=== PATIENT | male | born 1955 | race Caucasian/White ===

== ENCOUNTER 2018-06-23 14:35 | Emergency (ER) | payer SELFPAY ==
[~2018-06-23 14:35] MED LIST: Iopamidol 370 76% 100 ML VIAL ONE
[2018-06-23 15:26] LABS: #Basophils 0.1 thou/uL (0.0-0.2); #Lymphocytes 1.7 thou/uL (1.20-3.40); #Monocytes 0.7 thou/uL (0.11-0.59); #Neutrophils 3.1 thou/uL (1.40-6.50); %Basophils 1.8 % (0.0-1.0); %Eosinophils 0.4 % (0.0-10.0); %Lymphocytes 29.8 % (21.0-51.0); %Monocytes 11.8 % (0.0-10.0); %Neutrophils 56.2 % (42.0-75.0); Mean Corpuscular HGB CONC 31.8 g/dL (32.0-36.0); Mean Corpuscular Hemoglobin 26.7 pg (27.0-31.0); Mean Corpuscular Volume 83.9 fL (78.0-98.0); Mean Platelet Volume 7.5 fL (7.4-10.4); Platelet Count 324 thou/uL (130-400); RBC Distribution Width 11.6 % (11.5-14.5); Red Blood Cell (RBC) Count 5.98 mill/uL (4.70-6.10); White Blood Cell (WBC) Count 5.6 thou/uL (4.8-10.8)
[2018-06-23] MEDS ORDERED: Sodium Chloride 0.9% 1,000 ML ONE (15:27)
[2018-06-23] MEDS ORDERED: Ondansetron PF 4 MG/2 ML Vial ONE (15:27)
[2018-06-23 15:42] LABS: CKMB 1.2 ng/mL (0-6.6); Troponin I 0.012 ng/mL (< 0.028)
--- NOTE | 2018-06-23 15:48 | RAD ---
FRONTAL VIEW CHEST: Date: 06/23/18 No prior comparison. INDICATION: Nausea and vomiting. FINDINGS: There is a linear-oriented region of patchy density at the lateral right mid lung zone. Punctate dens ity of the lateral right lung base may be related to granulomatous calcification. Cardiac silhouette is accentuated by portable technique. Osseous structures are intact. IMPRESSION: Patchy density in lateral right mid lung, could relate to an area of atelectasis or a subtle area of developing infiltrate related to pneumonia. This may be further assess with follow-up 2 view chest. POS: [facility]
[2018-06-23 15:52] LABS: ALT (SGPT) 79 U/L (8-55); AST (SGOT) 44 U/L (5-34); Alkaline Phosphatase 79 U/L (40-150); Anion Gap 17 mmol/L (10-20); BUN (Urea Nitrogen) 17 mg/dL (8.4-25.7); Bilirubin, Total 0.5 mg/dL (0.2-1.2); CK (CPK) 88 U/L (30-200); Calc. Creatinine Clearance 0 mL/min (70-130); Calcium 9.4 mg/dL (7.8-10.44); Carbon Dioxide 22 mmol/L (23-31); Chloride 100 mmol/L (98-107); Estimated GFR-MDRD Greater than 90; Globulin 3.2 g/dL (2.4-3.5); Glucose 98 mg/dL (80-115); Lipase 31 U/L (8-78); Potassium 4.4 mmol/L (3.5-5.1); Protein, Total 7.2 g/dL (5.8-8.1); Sodium 135 mmol/L (136-145)
[2018-06-23 16:53] LABS: Bilirubin Negative (Negative); Blood, Urine Negative (Negative); Clarity Clear (Clear); Glucose, Urine (Dipstick) Negative (Negative); Leukocyte Negative (Negative); Nitrite Negative (Negative); Protein, Urine (Dipstick) Negative (Neg-Trace); Specific Gravity, Urine 1.015 (1.005-1.030); Urobilinogen 0.2 mg/dL (0.2-1.0)
--- NOTE | 2018-06-23 18:53 | RAD ---
TWO VIEWS CHEST: 06/23/18 HISTORY: Cough. PA and lateral views of the chest is obtained on 06/23/18. Two views chest demonstrates an area of slight volume loss with opacification seen in the inferior as pect of the right upper lobe. This is compatible with a small area of right upper lobe pneumonia. It is better visualized on the PA and lateral views of the chest rather than the AP portable chest radio graph obtained earlier. The left lung is well aerated. IMPRESSION: Areas of patchy pneumonia in the inferior aspect of the right upper lobe. Followup films to resoluti on recommended. POS: [facility]
[2018-06-23] MEDS ORDERED: Azithromycin 250 MG TAB ONE (19:15)
--- NOTE | 2018-06-23 19:45 | CT ---
CONTRAST ENHANCED CT IMAGES OF THE ABDOMEN AND PELVIS: 06/23/18 HISTORY: Vomiting. Contrast enhanced CT images of the abdomen and pelvis obtained after administration of IV and oral co ntrast. Images demonstrate areas of patchy density as well as numerous nodular densities in the lung bases. T his is concerning for possible lung metastatic lesions. Other possibilities could include extensive p revious inflammatory parenchymal processes. Right hilar calcified lymph node is seen. The liver and spleen are unremarkable. The pancreas and gallbladder are unremarkable. There is abnormal thickening of the proximal half of the duodenum with some surrounding duodenal thic kening and inflammatory change. This may represent a duodenal ulcer or inflammatory process. Correlat e with direct visualization. Adrenal glands are unremarkable. No evidence of renal parenchymal masses or lesions seen. No dilated loops of small bowel seen. The appendix definitively not visualized. The colon is unremark able without evidence of significant distension or masses. IMPRESSION: 1. Numerous lung parenchymal soft tissue nodules and ill-defined lesions. Metastatic disease can not be excluded. 2. Abnormal thickening of the proximal duodenum. This may represent an inflammatory process with in the duodenum. Correlate with direct visualization. POS: [facility]
== END 2018-06-23 19:35 | disposition home or self-care (01) ==
LOC: NAV ERS 14:35
DX: J18.9 Pneumonia, unspecified organism (principal); R11.2 Nausea with vomiting, unspecified; Z79.82 Long term (current) use of aspirin
CPT/HCPCS: 71045; 71046; 74177; 80053; 81003; 82553; 83690; 84484; 85025; 93005; 96361; 96374; J2405; J7050

== ENCOUNTER 2022-06-09 08:30 | Emergency (ER) | payer MEDICARE, SELFPAY ==
[2022-06-09] MEDS ORDERED: Iopamidol 370 76% 100 ML VIAL ONE (09:00)
[2022-06-09] MEDS ORDERED: Nitroglycerin 2% Ointment 1 INCH/1 GM Packet ONE (09:17)
[2022-06-09] MEDS ORDERED: Morphine 4 MG/ML VIAL ONE (09:18)
[2022-06-09] MEDS ORDERED: Aspirin Chewable 81 MG TAB ONE (09:18)
[2022-06-09 10:05] LABS: Bilirubin Negative (Negative); Blood, Urine Trace (Negative); Glucose, Urine (Dipstick) Negative (Negative); Ketone, Urine Negative (Negative); Leukocyte Negative (Negative); Nitrite Negative (Negative); Protein, Urine (Dipstick) Negative (Neg-Trace); Specific Gravity, Urine 1.015 (1.005-1.030)
[2022-06-09 10:06] LABS: Clarity Slightly Cloudy (Clear)
[2022-06-09 10:11] LABS: Bacteria/HPF None Seen HPF (None Seen); RBC/HPF 0-3 HPF (0-3); Squamous Epithelial 0-3 HPF (0-3); WBC/HPF 0-3 HPF (0-3)
[2022-06-09 12:28] LABS: Troponin I 2.601 ng/mL (< 0.028)
[2022-06-15 15:39] LABS: Prothrombin Time 13.5 sec (12.0-14.7)
[2022-06-15 15:50] LABS: %Lymphocytes 16.6 % (21.0-51.0); %Monocytes 10.4 % (0.0-10.0); %Neutrophils 71.7 % (42.0-75.0); Hemoglobin 14.1 g/dL (14.0-18.0); Mean Corpuscular HGB CONC 33.3 g/dL (32.0-36.0); Mean Corpuscular Hemoglobin 29.4 pg (27.0-31.0); Mean Corpuscular Volume 88.2 fl (78.0-98.0); Mean Platelet Volume 9.2 fL (7.4-10.4); Platelet Count 295 thou/uL (130-400); RBC Distribution Width 12.3 % (11.5-14.5); Red Blood Cell (RBC) Count 4.81 mill/uL (4.70-6.10); White Blood Cell (WBC) Count 10.3 thou/uL (4.8-10.8)
[2022-06-15 15:51] LABS: #Basophils 0.1 thou/uL (0.0-0.2); #Lymphocytes 1.7 thou/uL (1.20-3.40); #Monocytes 1.1 thou/uL (0.11-0.59); #Neutrophils 7.4 thou/uL (1.40-6.50); %Eosinophils 0.4 % (0.0-10.0)
[2022-06-15 15:53] LABS: PTT 29.6 sec (22.9-36.1)
[2022-06-15 15:56] LABS: CKMB 1.9 ng/mL (0-6.6)
[2022-06-15 15:57] LABS: ALT (SGPT) 37 U/L (8-55); AST (SGOT) 20 U/L (5-34); Albumin 4.1 g/dL (3.4-4.8); Alkaline Phosphatase 77 U/L (40-110); Anion Gap 17 mmol/L (10-20); BUN (Urea Nitrogen) 14 mg/dL (8.4-25.7); Bilirubin, Total 1.4 mg/dL (0.2-1.2); CK (CPK) 87 U/L (30-200); Calc. Creatinine Clearance 0 mL/min (70-130); Calcium 9.2 mg/dL (7.8-10.44); Carbon Dioxide 22 mmol/L (23-31); Chloride 99 mmol/L (98-107); Estimated GFR 73; Globulin 3.3 g/dL (2.4-3.5); Glucose 152 mg/dL (80-115); Potassium 3.9 mmol/L (3.5-5.1); Protein, Total 7.4 g/dL (5.8-8.1); Sodium 134 mmol/L (136-145)
== END 2022-06-09 13:53 | disposition short-term general hospital (02) ==
LOC: NAV ERS 08:30
DX: I63.9 Cerebral infarction, unspecified (principal); R77.8 Other specified abnormalities of plasma proteins
CPT/HCPCS: 36416; 51701; 70450; 70496; 70498; 81003; 81015; 82553; 85730; 93005; 96374; J2270; Q9967